=== PATIENT | female | born 1975 | race African-American/Black ===

== ENCOUNTER 2016-04-30 12:24 | Emergency (ER) | payer SELFPAY ==
[~2016-04-30] VITALS: Ht 162.6 cm; Wt 105.3 kg
[2016-04-30 12:43] VITALS: BP 149/98; PULSE 77; RESP 16; TEMP 99.1; O2SAT 98
[2016-04-30] MEDS ORDERED: TRAM50TA PO (13:17)
[2016-04-30] MEDS ORDERED: IBUP400T20 PO (13:17)
--- NOTE | 2016-04-30 13:31 | PD ---
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 She says she's constantly bleeding. She goes through 2 boxes of pads in 2 boxes of tampons per week. She says she feels lightheaded and dizzy when she goes from sitting to standing and she sees black spots in her vision. She gets intermittent lower abdominal cramping as well as low back pain and she's having difficulty working through her low back pain. She was seen in the emergency department in late March for similar symptoms. At that time she had a pelvic ultrasound which demonstrated a cyst but otherwise her exam was reassuring. She was given tramadol at that time but says she can't take it because it makes her too sleepy to work. PFSH Past Medical History Arthritis: No Asthma: No Autoimmune Disease: No Blood Disorders: No Anxiety: No Depression: No Cancer: No Cardiovascular Problems: No COPD: No Cerebrovascular Accident: No Diabetes: No Diminished Hearing: No Endocrine: No Glaucoma: No Genitourinary: No Headaches: No Hepatitis: No Immune Disorder: No Kidney Stones: No Musculoskeletal: No Neurologic: No Psychiatric: No Reproductive: No Respiratory: No Migraines: No Myocardial Infarction: No Radiation Therapy: No Renal Failure: No Seizures: No Sickle Cell Disease: No Sleep Apnea: No ?: Not : 3 Para: 3 Ectopic : No Ovarian Cysts: No Tubal Ligation: No Past Surgical History Abdominal Surgery: Yes (C SECTION) AICD: No Arteriovenous Shunt: No Cardiac Surgery: No Section: Yes Cholecystectomy: No Ear Surgery: No Eye Surgery: No Genitourinary Surgery: No Gynecologic Surgery: No Hysterectomy: No Insulin Pump: No Joint Replacement: No Oral Surgery: No Pacemaker: No Thoracic Surgery: No Social History Alcohol Use: Yes (SOCIAL) Tobacco Use: No (FORMER) Substance Use: No Allergies-Medications (Allergen,Severity, Reaction): Coded Allergies: Lortab (Verified Adverse Reaction, Severe, NAUSEA, 04/30/16) Reported Meds & Prescriptions Reported Meds & Active Scripts Active Reported Ibuprofen 400 Mg Tab 400 Mg PO Q8H PRN Tramadol (Tramadol HCl) 50 Mg Tab 50 Mg PO Q6H PRN Review of Systems Except as stated in HPI: all other systems reviewed are Neg Physical Exam Narrative GENERAL: Well-nourished, well-developed patient. SKIN: Warm and dry. HEAD: Normocephalic. EYES: No scleral icterus. No injection or drainage. NECK: Supple, trachea midline. CARDIOVASCULAR: Regular rate and rhythm without murmurs. RESPIRATORY: Breath sounds equal bilaterally. No accessory muscle use. GASTROINTESTINAL: Abdomen soft, mildly tender to palpation in the suprapubic region with no rebound or guarding. MUSCULOSKELETAL: No cyanosis, or edema. Data Data Last Documented VS Vital Signs Date Time Temp Pulse Resp B/P Pulse Ox O2 Delivery O2 Flow Rate FiO2 04/30/16 12:43 99.1 77 16 149/98 98 Orders Complete Blood Count With Diff (04/30/16 13:28) Ed Urine Pregnancytest Poc (04/30/16 13:29) Labs Laboratory Tests Test 04/30/16 13:55 White Blood Count 5.0 TH/MM3 Red Blood Count 4.00 MIL/MM3 Hemoglobin 10.8 GM/DL Hematocrit 33.1 % Mean Corpuscular Volume 82.7 FL Mean Corpuscular Hemoglobin 27.1 PG Mean Corpuscular Hemoglobin 32.8 % Concent Red Cell Distribution Width 13.7 % Platelet Count 312 TH/MM3 Mean Platelet Volume 6.9 FL Neutrophils (%) (Auto) 50.0 % Lymphocytes (%) (Auto) 40.3 % Monocytes (%) (Auto) 7.1 % Eosinophils (%) (Auto) 2.1 % Basophils (%) (Auto) 0.5 % Neutrophils # (Auto) 2.5 TH/MM3 Lymphocytes # (Auto) 2.0 TH/MM3 Monocytes # (Auto) 0.4 TH/MM3 Eosinophils # (Auto) 0.1 TH/MM3 Basophils # (Auto) 0.0 TH/MM3 CBC Comment DIFF FINAL Differential Comment MDM Medical Decision Making Medical Screen Exam Complete: Yes Emergency Medical Condition: Yes Interpretation(s) Afebrile, no tachycardia, hypertensive No leukocytosis Anemia similar to prior is negative Differential Diagnosis Menorrhagia, miscarriage, fibroid uterus, polycystic ovarian syndrome Narrative Course This is a 40-year-old female who presents to the emergency department with heavy vaginal bleeding that going on for 45 days. She was placed on a monitor and an IV was established labs were obtained which demonstrated a hemoglobin which is similar to prior. She is slightly anemic. The patient's age limits her as estrogen containing products or contraindication. 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 Patient is amenable to this. Diagnosis Primary Impression: Menorrhagia Qualified Code: N92.1 - Menorrhagia with irregular cycle Patient Instructions: General Instructions Additional Instructions: Heavy bleeding can be caused by many things including: - One of your ovaries not releasing an egg during one or more months - Growths in the uterus called fibroids - A bleeding disorder that prevents your blood from clotting normally - Side effects of some medicines, such as some types of control or blood thinners - A problem with your thyroid (a gland that makes hormones) Return to the emergency department if you: Need to use both tampons and pads at the same time because you are bleeding so much Need to change your pad or tampon during the night Or are feeling lightheaded, weak, dizzy, have chest pain, shortness of breath or are having difficulty exerting yourself Med/Other Pt SpecificInfo: Prescription(s) given Scripts Naproxen 500 Mg [id number] Mg PO BID PRN (PAIN SCALE 4 TO 10) #20 TAB Ref 0 Prov:Nilsa Bobo MD 04/30/16 Norethindrone (Norethindrone 35)0.35 Mg Tab1 Tab PO DAILY #1 PACK Ref 0 Prov:Nilsa Bobo MD 04/30/16 Disposition: 01 DISCHARGE HOME Condition: Stable Nilsa Bobo MD Apr 30, 2016 13:31
[2016-04-30 13:59] LABS: AUTOMATED NEUTROPHIL # 2.5 TH/MM3 (1.8-7.7); BASOPHIL % 0.5 % (0.0-2.0); EOSINOPHIL # 0.1 TH/MM3 (0-0.4); EOSINOPHIL % 2.1 % (0.0-4.0); HEMATOCRIT 33.1 % (35.0-46.0); HEMO FLAGS DIFF FINAL; LYMPH % 40.3 % (9.0-44.0); MEAN CELL VOLUME 82.7 FL (80.0-100.0); MEAN CORPUSCULAR HEMOGLOBIN 27.1 PG (27.0-34.0); MEAN CORPUSCULAR HGB CONC 32.8 % (32.0-36.0); MONO % 7.1 % (0.0-8.0); PLATELET COUNT 312 TH/MM3 (150-450); RED CELL DISTRIBUTION WIDTH 13.7 % (11.6-17.2)
[2016-04-30] MEDS ORDERED: NAPR500T PO (14:14)
[2016-04-30] MEDS ORDERED: NORE0.354 PO (14:14)
== END 2016-04-30 14:58 | disposition home or self-care (01) ==
LOC: PHED 12:24
DX: N92.0 Excessive and frequent menstruation with regular cycle (principal)
CPT/HCPCS: 84703; 85025; 99284

== ENCOUNTER 2016-06-09 22:04 | Emergency (ER) | payer OTHER ==
[~2016-06-09] VITALS: Ht 162.6 cm; Wt 106.8 kg
[~2016-06-09 22:04] MED LIST: IBUP400T20 PO; NAPR500T PO; NORE0.354 PO; TRAM50TA PO
[2016-06-09 22:09] VITALS: BP 160/94; PULSE 84; RESP 18; TEMP 98.8; O2SAT 97
--- NOTE | 2016-06-09 22:23 | PD ---
HPI Chief Complaint: Bite or Sting Time Seen by Provider: 22:22 Travel History International Travel<30 days: No Contact w/Intl Traveler<30days: No Traveled to known affect area: No PFSH Past Medical History Arthritis: No Asthma: No Autoimmune Disease: No Blood Disorders: No Anxiety: No Depression: No Cancer: No Cardiovascular Problems: No COPD: No Cerebrovascular Accident: No Diabetes: No Diminished Hearing: No Endocrine: No Glaucoma: No Genitourinary: No Headaches: No Hepatitis: No Immune Disorder: No Kidney Stones: No Musculoskeletal: No Neurologic: No Psychiatric: No Reproductive: No Respiratory: No Migraines: No Myocardial Infarction: No Radiation Therapy: No Renal Failure: No Seizures: No Sickle Cell Disease: No Sleep Apnea: No ?: Not LMP: daily : 3 Para: 3 Ectopic : No Ovarian Cysts: No Tubal Ligation: No Past Surgical History Abdominal Surgery: Yes (C SECTION) AICD: No Arteriovenous Shunt: No Cardiac Surgery: No Section: Yes Cholecystectomy: No Ear Surgery: No Eye Surgery: No Genitourinary Surgery: No Gynecologic Surgery: No Hysterectomy: No Insulin Pump: No Joint Replacement: No Oral Surgery: No Pacemaker: No Thoracic Surgery: No Social History Alcohol Use: Yes (SOCIAL) Tobacco Use: No (FORMER) Substance Use: No Allergies-Medications (Allergen,Severity, Reaction): Coded Allergies: Lortab (Verified Adverse Reaction, Severe, NAUSEA, 06/09/16) Reported Meds & Prescriptions Reported Meds & Active Scripts Active Norethindrone 35 (Norethindrone) 0.35 Mg Tab 1 Tab PO DAILY Data Data Last Documented VS Vital Signs Date Time Temp Pulse Resp B/P Pulse Ox O2 Delivery O2 Flow Rate FiO2 06/09/16 22:20 06/09/16 22:09 98.8 84 18 97 Mary Castellano Jun 09, 2016 22:23
[2016-06-09] MEDS ORDERED: CLINDAMYCIN PHOS 600 MG/4 ML VIAL IM ONE (22:30)
[2016-06-09] MEDS ORDERED: CLIN1CAP5 PO (22:30)
[2016-06-09] MEDS: traMADol HCL 50 MG TAB PO ONE ×2 (22:30→22:38)
[2016-06-09] MEDS ORDERED: BACT800T5 PO (22:30)
[2016-06-09] MEDS ORDERED: ULTR50TA5 PO (22:30)
--- NOTE | 2016-06-09 22:30 | PD ---
HPI Chief Complaint: Bite or Sting Time Seen by Provider: 22:23 Travel History International Travel<30 days: No Contact w/Intl Traveler<30days: No Traveled to known affect area: No History of Present Illness HPI 40-year-old female complains of left arm pain. Patient states that she noticed 2 pimples on the medial aspect left elbow yesterday and has increased in pain and swelling since then. Patient denies any fever chills. Patient denies any direct injury to the elbow. Patient states that she is up-to-date with TD booster. Patient states the pain is sharp pain localized to the medial aspect the left elbow. Patient states the pain radiated up and down to left arm. Patient states the pain is worse with movement of the left elbow. On a scale of 1-10 the pain is an 8. PFSH Past Medical History Arthritis: No Asthma: No Autoimmune Disease: No Blood Disorders: No Anxiety: No Depression: No Cancer: No Cardiovascular Problems: No COPD: No Cerebrovascular Accident: No Diabetes: No Diminished Hearing: No Endocrine: No Glaucoma: No Genitourinary: No Headaches: No Hepatitis: No Immune Disorder: No Kidney Stones: No Musculoskeletal: No Neurologic: No Psychiatric: No Reproductive: No Respiratory: No Migraines: No Myocardial Infarction: No Radiation Therapy: No Renal Failure: No Seizures: No Sickle Cell Disease: No Sleep Apnea: No ?: Not LMP: daily : 3 Para: 3 Ectopic : No Ovarian Cysts: No Tubal Ligation: No Past Surgical History Abdominal Surgery: Yes (C SECTION) AICD: No Arteriovenous Shunt: No Cardiac Surgery: No Section: Yes Cholecystectomy: No Ear Surgery: No Eye Surgery: No Genitourinary Surgery: No Gynecologic Surgery: No Hysterectomy: No Insulin Pump: No Joint Replacement: No Oral Surgery: No Pacemaker: No Thoracic Surgery: No Social History Alcohol Use: Yes (SOCIAL) Tobacco Use: No (FORMER) Substance Use: No Allergies-Medications (Allergen,Severity, Reaction): Coded Allergies: Lortab (Verified Adverse Reaction, Severe, NAUSEA, 06/09/16) Reported Meds & Prescriptions Reported Meds & Active Scripts Active Norethindrone 35 (Norethindrone) 0.35 Mg Tab 1 Tab PO DAILY Review of Systems General / Constitutional: No: Fever Eyes: No: Visual changes HENT: No: Headaches Cardiovascular: No: Chest Pain or Discomfort Respiratory: No: Shortness of Breath Gastrointestinal: No: Abdominal Pain Genitourinary: No: Dysuria Musculoskeletal: Positive: Pain Skin: No Rash Neurologic: No: Weakness Psychiatric: No: Depression Endocrine: No: Polydipsia Hematologic/Lymphatic: No: Easy Bruising Physical Exam Narrative GENERAL: Well-nourished, well-developed patient. SKIN: Warm and dry. HEAD: Normocephalic. EYES: No scleral icterus. No injection or drainage. NECK: Supple, trachea midline. No JVD or lymphadenopathy. CARDIOVASCULAR: Regular rate and rhythm without murmurs, gallops, or rubs. RESPIRATORY: Breath sounds equal bilaterally. No accessory muscle use. GASTROINTESTINAL: Abdomen soft, non-tender, nondistended. MUSCULOSKELETAL: No cyanosis, or edema. BACK: Nontender without obvious deformity. No CVA tenderness. Patient has redness swelling tenderness medial aspect the left elbow. No induration. No discharge. Full range of motion the left elbow. Data Data Last Documented VS Vital Signs Date Time Temp Pulse Resp B/P Pulse Ox O2 Delivery O2 Flow Rate FiO2 06/09/16 22:20 06/09/16 22:09 98.8 84 18 97 Orders Clindamycin Inj (Cleocin Inj) (06/09/16 22:30) MDM Medical Decision Making Medical Screen Exam Complete: Yes Emergency Medical Condition: Yes Differential Diagnosis Differential diagnosis including cellulitis, abscess. Narrative Course 40-year-old female with pain swelling and redness medial aspect left elbow. Clindamycin 600 mg IM. Ultram 50 mg by mouth given. Diagnosis Primary Impression: Cellulitis of left elbow Patient Instructions: General Instructions Additional Instructions: Take medications as directed. Moist compress to the area. Return tomorrow for recheck. Med/Other Pt SpecificInfo: Prescription(s) given Scripts Tramadol (Ultram)50 Mg Tab50 Mg PO Q6H PRN (PAIN) #20 TAB Prov:Josh Duncan MD 06/09/16 Sulfamethoxazole-Trimethoprim (Bactrim DS)800-160 Mg Tab1 Tab PO BID #20 TAB Prov:Josh Duncan MD 06/09/16 Clindamycin 150 Mg Cap2 Tab PO Q6H #80 CAP Prov:Josh Duncan MD 06/09/16 Disposition: 01 DISCHARGE HOME Condition: Stable Josh Duncan MD Jun 09, 2016 22:30
== END 2016-06-09 22:58 | disposition home or self-care (01) ==
LOC: PHEFT 22:04
DX: L03.114 Cellulitis of left upper limb (principal); Z87.891 Personal history of nicotine dependence
CPT/HCPCS: 96372

== ENCOUNTER 2016-06-12 09:38 | Emergency (ER) | payer OTHER ==
[~2016-06-12] VITALS: Ht 162.6 cm; Wt 107.0 kg
[~2016-06-12 09:38] MED LIST changes: +BACT800T5 PO; +CLIN1CAP5 PO; -IBUP400T20 PO; -NAPR500T PO; -TRAM50TA PO; +ULTR50TA5 PO
[2016-06-12 09:42] VITALS: BP 136/83; PULSE 71; RESP 18; TEMP 98; O2SAT 97
[2016-06-12] MEDS ORDERED: DOXY100C PO (10:40)
--- NOTE | 2016-06-12 10:42 | PD ---
HPI . Adverse drug reaction Chief Complaint: Wound/Suture/Staple Re-Check Time Seen by Provider: 10:36 Travel History International Travel<30 days: No Contact w/Intl Traveler<30days: No Traveled to known affect area: No History of Present Illness HPI Patient presents complaining with nausea due to antibiotics. Patient was seen here 2 days ago with cellulitis to the left arm. She was prescribed Cleocin and Bactrim. One or both of them is making her nauseous. She does not believe that the infection is getting any better. She is not running fever. PFSH Past Medical History Arthritis: No Asthma: No Autoimmune Disease: No Blood Disorders: No Anxiety: No Depression: No Cancer: No Cardiovascular Problems: No COPD: No Cerebrovascular Accident: No Diabetes: No Diminished Hearing: No Endocrine: No Glaucoma: No Genitourinary: No Headaches: No Hepatitis: No Immune Disorder: No Kidney Stones: No Musculoskeletal: No Neurologic: No Psychiatric: No Reproductive: Yes (irregular periods) Respiratory: No Immunizations Current: Yes Migraines: No Myocardial Infarction: No Radiation Therapy: No Renal Failure: No Seizures: No Sickle Cell Disease: No Sleep Apnea: No ?: Not : 3 Para: 3 Ectopic : No Ovarian Cysts: No Tubal Ligation: No Past Surgical History Abdominal Surgery: Yes (C SECTION) AICD: No Arteriovenous Shunt: No Cardiac Surgery: No Section: Yes Cholecystectomy: No Ear Surgery: No Eye Surgery: No Genitourinary Surgery: No Gynecologic Surgery: No Hysterectomy: No Insulin Pump: No Joint Replacement: No Oral Surgery: No Pacemaker: No Thoracic Surgery: No Social History Alcohol Use: Yes (SOCIAL) Tobacco Use: No (FORMER) Substance Use: No Allergies-Medications (Allergen,Severity, Reaction): Coded Allergies: Lortab (Verified Adverse Reaction, Severe, NAUSEA, 06/12/16) PT DENIES ALLERGY TO LORTAB Reported Meds & Prescriptions Reported Meds & Active Scripts Active Ultram (Tramadol HCl) 50 Mg Tab 50 Mg PO Q6H PRN Bactrim DS (Sulfamethoxazole-Trimethoprim) 800-160 Mg Tab 1 Tab PO BID Clindamycin (Clindamycin HCl) 150 Mg Cap 2 Tab PO Q6H Norethindrone 35 (Norethindrone) 0.35 Mg Tab 1 Tab PO DAILY Review of Systems General / Constitutional: No: Fever, Chills Skin: Positive Change in Pigmentation, Positive Other (swelling) Physical Exam Narrative GENERAL: Awake and alert and in no acute distress. SKIN: Warm and dry. She has an area of erythema and induration to the medial left elbow area. There is no associated fluctuance. It is tender. CARDIOVASCULAR: Regular rate and rhythm. RESPIRATORY: No accessory muscle use. MUSCULOSKELETAL: No obvious deformities. No edema. NEUROLOGICAL: Awake and alert. No obvious cranial nerve deficits. Motor grossly within normal limits. Normal speech. PSYCHIATRIC: Appropriate mood and affect; insight and judgment normal. Data Data Last Documented VS Vital Signs Date Time Temp Pulse Resp B/P Pulse Ox O2 Delivery O2 Flow Rate FiO2 06/12/16 09:42 98.0 71 18 136/83 97 MDM Medical Decision Making Medical Screen Exam Complete: Yes Emergency Medical Condition: Yes Differential Diagnosis My differential diagnosis includes but is not limited to localized wound infection, cellulitis, abscess Narrative Course Patient presents complaining with continued redness, pain and swelling to the left arm. She is complaining that the antibiotics days ago are making her sick to her stomach. I will discontinue the Cleocin and Bactrim and replace them with doxycycline. Diagnosis Primary Impression: Cellulitis of left elbow Additional Instructions: Stopped the antibiotics prescribed 2 days ago. Replace them with doxycycline. Your control pills may not prevent while on the antibiotic. Please use other precautions. Med/Other Pt SpecificInfo: Prescription(s) given Scripts Doxycycline Hyclate 100 Mg [id number] Mg PO BID #20 CAP Ref 0 Prov:Mandy Patel MD 06/12/16 Disposition: 01 DISCHARGE HOME Condition: Stable Mandy Patel MD Jun 12, 2016 10:41
== END 2016-06-12 10:58 | disposition home or self-care (01) ==
LOC: PHED 09:38
DX: L03.114 Cellulitis of left upper limb (principal)
CPT/HCPCS: 99283

== ENCOUNTER 2016-09-11 11:03 | Emergency (ER) | payer OTHER ==
[~2016-09-11 11:03] MED LIST changes: -BACT800T5 PO; -CLIN1CAP5 PO; +DOXY100C PO
[2016-09-11 11:05] VITALS: BP 180/95; PULSE 81; RESP 14; TEMP 98.2; O2SAT 99
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
[2016-09-11] MEDS ORDERED: SODIUM CHLOR 0.9% 1000 ML INJ 1,000 ML IV ONE (12:07)
[2016-09-11] MEDS ORDERED: PROCHLORPERAZINE INJ 10 MG/2 ML VIAL IVP ONE (12:15)
[2016-09-11] MEDS ORDERED: KETOROLAC TROMETHAMINE 30 MG/ML (IVP) VIAL IVP ONE (12:15)
[2016-09-11] MEDS ORDERED: diphenhydrAMINE HCL 50 MG/ML VIAL IVP ONE (12:15)
[2016-09-11] MEDS ORDERED: PROCHLORPERAZINE INJ 10 MG/2 ML VIAL IM ONE (13:00)
[2016-09-11] MEDS ORDERED: KETOROLAC TROMETHAMINE 60 MG/2 ML (IM) VIAL IM ONE (13:00)
[2016-09-11] MEDS ORDERED: diphenhydrAMINE HCL 50 MG/ML VIAL IM ONE (13:00)
[2016-09-11] MEDS ORDERED: IBUP800T23 PO (13:14)
[2016-09-11] MEDS ORDERED: ROBA500T PO (13:14)
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
== END 2016-09-11 14:37 | disposition home or self-care (01) ==
LOC: NEPD 11:03
DX: G44.309 Post-traumatic headache, unspecified, not intractable (principal); M54.5 Low back pain; V53.5XXA Driver of pick-up truck or van injured in collision with car, pick-up truck or van in traffic accident, initial encounter; Y93.89 Activity, other specified; Y92.488 Other paved roadways as the place of occurrence of the external cause
CPT/HCPCS: 72100; 96372; 99284; J0780; J1200; J1885

== ENCOUNTER 2017-03-19 11:53 | Emergency (ER) | payer SELFPAY ==
[~2017-03-19 11:53] MED LIST changes: -DOXY100C PO; +IBUP1TAB7 PO; +ROBA500T PO; +TRAM50 PO; -ULTR50TA5 PO
[2017-03-19 11:54] VITALS: BP 141/78; PULSE 77; RESP 20; TEMP 98.7; O2SAT 97
[2017-03-19] MEDS ORDERED: DEXAMETHASONE SOD PHOS 4 MG/ML VIAL IM ONE (12:30)
[2017-03-19] MEDS ORDERED: IBUP1TAB7 PO (12:33)
--- NOTE | 2017-03-19 12:34 | PD ---
HPI Chief Complaint: Pain: Acute or Chronic Time Seen by Provider: 12:09 Travel History International Travel<30 days: No Contact w/Intl Traveler<30days: No Traveled to known affect area: No History of Present Illness HPI 41-year-old female here with bilateral knee pain. She denies injury trauma. Duration greater than 2 weeks. She reports feeling and clicking popping sensation with walking mission. Bilateral knee joint swelling. Denies fever or chills. Symptom severity is moderate. Alleviate with rest and elevation. PFSH Past Medical History Hx Anticoagulant Therapy: Yes Arthritis: No Asthma: No Autoimmune Disease: No Blood Disorders: No Anxiety: No Depression: No Cancer: No Cardiovascular Problems: No COPD: No Cerebrovascular Accident: No Diabetes: No Diminished Hearing: No Endocrine: No Gastrointestinal Disorders: No Glaucoma: No Genitourinary: No Headaches: No Hepatitis: No Immune Disorder: No Kidney Stones: No Musculoskeletal: Yes (history of low back pain& pain management) Neurologic: No Psychiatric: No Reproductive: Yes (irregular periods) Respiratory: No Immunizations Current: Yes Migraines: No Myocardial Infarction: No Radiation Therapy: No Renal Failure: No Seizures: No Sickle Cell Disease: No Sleep Apnea: No Tetanus Vaccination: < 5 Years Influenza Vaccination: No ?: Not LMP: 1 YEAR. TUBAL : 3 Para: 3 Ectopic : No Ovarian Cysts: No Tubal Ligation: No Past Surgical History Abdominal Surgery: Yes (C SECTION) AICD: No Arteriovenous Shunt: No Cardiac Surgery: No Section: Yes Cholecystectomy: No Ear Surgery: No Eye Surgery: No Genitourinary Surgery: No Gynecologic Surgery: No Hysterectomy: No Insulin Pump: No Joint Replacement: No Neurologic Surgery: No Oral Surgery: No Pacemaker: No Thoracic Surgery: No Other Surgery: No Social History Alcohol Use: Yes (SOCIAL) Tobacco Use: No (FORMER) Substance Use: No Allergies-Medications (Allergen,Severity, Reaction): Coded Allergies: acetaminophen (Verified Adverse Reaction, Severe, NAUSEA, 03/19/17) PT DENIES ALLERGY TO LORTAB hydrocodone (Verified Adverse Reaction, Severe, NAUSEA, 03/19/17) PT DENIES ALLERGY TO LORTAB Reported Meds & Prescriptions Reported Meds & Active Scripts Active Ibuprofen 800 Mg Tab 800 Mg PO Q8H PRN Review of Systems Except as stated in HPI: all other systems reviewed are Neg General / Constitutional: No: Fever Physical Exam Narrative GENERAL: Alert female in no distress. SKIN: Warm and dry. No warmth or erythema. HEAD: Normocephalic. CARDIOVASCULAR: Regular rate and rhythm without murmurs, gallops, or rubs. RESPIRATORY: Breath sounds equal bilaterally. No accessory muscle use. MUSCULOSKELETAL: No cyanosis. Bilateral knees tender to palpation. Moderate sized joint effusion bilaterally. No warmth or erythema. No wounds. No bony point tenderness. Patient able to flex and extend knees. 2+ distal pulses. Brisk cap refill. Data Data Last Documented VS Vital Signs Date Time Temp Pulse Resp B/P (MAP) Pulse Ox O2 Delivery O2 Flow Rate FiO2 03/19/17 11:54 98.7 77 20 141/78 (99) 97 Orders Orders Splint Or Brace Apply/Monitor (03/19/17 12:22) Dexamethasone Inj (Decadron Inj) (03/19/17 12:30) MDM Medical Decision Making Medical Screen Exam Complete: Yes Emergency Medical Condition: Yes Differential Diagnosis Arthritis, strain, tendinitis Narrative Course 41-year-old female with bilateral nontraumatic knee pain for greater than 2 weeks. No other joint involvement. She has bilateral moderate sized joint effusion to both knees. No overlying warmth or erythema. I do not suspect infection. This appears to be osteoarthritis given the patient's body habitus. Gabriele wrap were applied. Patient was given a shot of Decadron. Prescription for NSAIDs and instructed to follow-up with or so ORTHO. Diagnosis Primary Impression: Knee pain, bilateral Qualified Codes: M25.561 - Pain in right knee; M25.562 - Pain in left knee Referrals: Orthopedist Primary Care Physician Scripts Ibuprofen (Ibuprofen) 800 Mg Tab 800 MG PO Q6HR Y for PAIN, #40 TAB 0 Refills Prov: Inga Kumar 03/19/17 Disposition: 01 DISCHARGE HOME Condition: Stable Inga Kumar Mar 19, 2017 12:34
== END 2017-03-19 12:48 | disposition home or self-care (01) ==
LOC: PHEFT 11:53
DX: M25.561 Pain in right knee (principal); M25.562 Pain in left knee
CPT/HCPCS: 96372; 99284; J1100; 29530

== ENCOUNTER 2017-08-20 07:47 | Emergency (ER) | payer SELFPAY ==
[~2017-08-20] VITALS: Ht 162.6 cm; Wt 98.7 kg
[~2017-08-20 07:47] MED LIST changes: -NORE0.354 PO; -ROBA500T PO; -TRAM50 PO
[2017-08-20 07:49] VITALS: BP 160/86; PULSE 73; RESP 16; TEMP 98.2; O2SAT 98
[2017-08-20] MEDS ORDERED: NABU1TAB37 PO (08:17)
--- NOTE | 2017-08-20 08:28 | PD ---
HPI . Knee pain Chief Complaint: Musculoskeletal Complaint Time Seen by Provider: 08:16 Travel History International Travel<30 days: No Contact w/Intl Traveler<30days: No Traveled to known affect area: No History of Present Illness HPI Patient presents with a chief complaint of bilateral knee pain. This has been ongoing issue for some time. She states that she has intermittently taken ibuprofen for her knee pain with relief of her pain. Her pain recurs when she stops taking ibuprofen. She is not currently taking anything for her knee pain. She states that she does not have a primary care provider to prescribe her medications. In addition to her knee pain, she has now developed some tingling in her left third fourth and fifth toes, especially the fifth toe. She denies any injury. She does not have back pain. PFSH Past Medical History Hx Anticoagulant Therapy: Yes Arthritis: No Asthma: No Autoimmune Disease: No Blood Disorders: No Anxiety: No Depression: No Cancer: No Cardiovascular Problems: No COPD: No Cerebrovascular Accident: No Diabetes: No Diminished Hearing: No Endocrine: No Gastrointestinal Disorders: No Glaucoma: No Genitourinary: No Headaches: No Hepatitis: No Immune Disorder: No Kidney Stones: No Musculoskeletal: Yes (history of low back pain& pain management) Neurologic: No Psychiatric: No Reproductive: Yes (irregular periods) Respiratory: No Immunizations Current: Yes Migraines: No Myocardial Infarction: No Radiation Therapy: No Renal Failure: No Seizures: No Sickle Cell Disease: No Sleep Apnea: No Tetanus Vaccination: Unknown Influenza Vaccination: No ?: Not LMP: irregular menses 2 yrs ago lmp : 3 Para: 3 Ectopic : No Ovarian Cysts: No Tubal Ligation: Yes Past Surgical History Abdominal Surgery: Yes (C SECTION) AICD: No Arteriovenous Shunt: No Cardiac Surgery: No Section: Yes Cholecystectomy: No Ear Surgery: No Eye Surgery: No Genitourinary Surgery: No Gynecologic Surgery: No Hysterectomy: No Insulin Pump: No Joint Replacement: No Neurologic Surgery: No Oral Surgery: No Pacemaker: No Thoracic Surgery: No Other Surgery: No Social History Alcohol Use: Yes (occas. wine) Tobacco Use: No (FORMER) Substance Use: No Allergies-Medications (Allergen,Severity, Reaction): Coded Allergies: acetaminophen (Verified Adverse Reaction, Severe, NAUSEA, 08/20/17) PT DENIES ALLERGY TO LORTAB hydrocodone (Verified Adverse Reaction, Severe, NAUSEA, 08/20/17) PT DENIES ALLERGY TO LORTAB Reported Meds & Prescriptions Reported Meds & Active Scripts Active Nabumetone 500 Mg Tab 500 Mg PO BID Review of Systems Except as stated in HPI: all other systems reviewed are Neg Physical Exam Narrative GENERAL: Awake and alert and in no acute distress. SKIN: Warm and dry. HEAD: Normocephalic/atraumatic. EYES: Pupils are equal. Extraocular movements are intact. NECK: Normal range of motion. CARDIOVASCULAR: Regular rate and rhythm. RESPIRATORY: Nonlabored respirations. MUSCULOSKELETAL: Atraumatic. Significant crepitus on active range of motion of both knees. The joints are not red or hot. Her feet have normal pulses, normal capillary refill and normal tactile temperature. She also has normal movement. NEUROLOGICAL: Nonfocal. PSYCHIATRIC: Appropriate mood and affect. Data Data Last Documented VS Vital Signs Date Time Temp Pulse Resp B/P (MAP) Pulse Ox O2 Delivery O2 Flow Rate FiO2 08/20/17 08:11 16 08/20/17 07:49 98.2 73 160/86 (110) 98 Orders Orders Ed Discharge Order (08/20/17 08:17) MDM Medical Decision Making Medical Screen Exam Complete: Yes Emergency Medical Condition: Yes Differential Diagnosis Differential diagnosis of joint pain includes but is not limited to arthritis, gout, sprain/strain, fracture, dislocation, bursitis Narrative Course This patient presents with bilateral knee pain which has been an ongoing issue for quite some time. Her exam is compatible with arthritis. She is also complaining with some numbness of her left third fourth and fifth toes. She does not have any physical exam findings concerning for poor circulation. This can be further worked up as an outpatient. I have given her a prescription for Relafen and have suggested that she go to the [facility]. Diagnosis Primary Impression: Arthritis Referrals: [facility] call [facility] Patient Instructions: General Instructions, Arthritis (ED) Departure Forms: Tests/Procedures Scripts Nabumetone (Nabumetone) 500 Mg Tab 500 MG PO BID for Pain-Inflammation, #60 TAB 0 Refills Prov: Mandy Patel MD 08/20/17 Disposition: 01 DISCHARGE HOME Condition: Stable Mandy Patel MD August 20, 2017 08:28
== END 2017-08-20 08:26 | disposition home or self-care (01) ==
LOC: PHED 07:47
DX: M19.90 Unspecified osteoarthritis, unspecified site (principal); M25.561 Pain in right knee; M25.562 Pain in left knee
CPT/HCPCS: 99283